=== PATIENT | female | born 1945 | race Native Hawaiian/Other Pacific Islander ===

== ENCOUNTER 2018-08-03 10:07 | Day surgery (SDC) | payer SELFPAY ==
[2018-08-03 10:39] VITALS: BMI 20.9
[2018-08-03 11:06] VITALS: RESP 18
[2018-08-03 12:01] LABS: BASO % 0.6 % (0.0-2.0); EOS # 0.1 K/uL (0.0-0.7); EOS % 2.9 % (0.0-4.0); HEMOGLOBIN 13.3 g/dL (12.0-16.0); LYMPH % 23.6 % (20.0-40.0); MEAN CELL VOLUME 99.3 fl (81.0-99.0); MEAN CORPUSCULAR HEMOGLOBIN 32.7 pg (27.0-31.0); MEAN PLATELET VOLUME 8.1 fl (7.2-11.7); MONO # 0.3 K/uL (0.0-0.8); MONO % 7.6 % (0.0-10.0); NEUT # 2.8 K/uL (1.8-7.0); NEUT % 65.3 % (50.0-75.0); NRBC % 0.2 % (0.0-0.0); RBC 4.06 Mil/uL (3.80-5.20); RED CELL DISTRIBUTION WIDTH 13.4 % (11.5-14.5); WHITE BLOOD COUNT 4.3 K/uL (4.8-10.8)
[2018-08-03] MEDS ORDERED: Lidocaine 1% Inj (20ml) ONE (12:14)
[2018-08-03 12:15] LABS: BLOOD UREA NITROGEN 19 mg/dl (7-17); CALCIUM 8.7 mg/dL (8.4-10.2); GFR NON-AFRICAN AMERICAN > 60
[2018-08-03 12:34] LABS: INR 0.9; PARTIAL THROMBOPLASTIN TIME 25.2 Seconds (25.6-37.1); PROTHROMBIN TIME 10.5 Seconds (9.8-13.1)
--- NOTE | 2018-08-03 12:34 | CP.SDSHP ---
Same Day Surgery H & P - History Proposed Procedure: US guided FNA of right thyroid nodule Pre-Op Diagnosis: right thyroid nodule - Allergies Allergies: Allergies No Known Allergies Allergy (Verified 08/03/18 10:40) - Physical Exam Vital Signs: Vital Signs 08/03/18 08/03/18 11:03 12:04 Temperature 98 F 98.4 F Pulse Rate 87 80 Respiratory 18 18 Rate Blood Pressure 145/91 H 140/79 O2 Sat by Pulse 95 Oximetry Mental Status: Alert & Oriented x3 - Impression Impression: Pt with a complex partially calcified right thyroid nodule. Plan US guided FNA of right thyroid nodule Pt. Evaluated Today:Candidate for Anesthesia & Procedure: No Short Stay Discharge - Short Stay Discharge Admitting Diagnosis/Reason for Visit: CYST RT 1.2 CM
--- NOTE | 2018-08-03 12:36 | PCM.SURG1 ---
Surgeon's Initial Post Op Note - Surgeon's Notes Surgeon: James Varma MD Overseer Kosher Kitchen: NONE Type of Anesthesia: Local Pre-Operative Diagnosis: right thyroid nodule Operative Findings: 1.2 cm calcified right thyroid nodule Post-Operative Diagnosis: Right thyroid nodule Operation Performed: US guided FNA of right thyroid nodule Specimen/Specimens Removed: 25 g FNA x 5 passes Estimated Blood Loss: EBL {In ML}: 1 Blood Products Given: N/A Drains Used: No Drains Post-Op Condition: Good Date of Surgery/Procedure: 08/03/18 Time of Surgery/Procedure: 12:30
[2018-08-03 13:04] VITALS: BP 160/93; PULSE 80; TEMP 98; O2SAT 97
--- NOTE | 2018-08-10 11:48 | US ---
PROCEDURE: Date of Procedure: 08/03/2018 PROCEDURE: 1. Ultrasound guided FNA of right thyroid nodule, CPT 85972 2. Ultrasound guidance for FNA, 39557 Medications: 3cc 1% Lidocaine HISTORY: Enlarged right thyroid nodule. TECHNIQUE: Following informed consent and procedure time-out, a limited ultrasound patient's neck confirmed the presence of a 1.5 cm complex right thyroid nodule which is calcified. After the patient's neck was prepped and draped in the usual sterile fashion, the skin was anesthetized with 1% lidocaine. Ultrasound-guided fine needle aspiration was then performed of the dominant right thyroid nodule. A total of 5 passes were made into the nodule with 25 gauge needle under ultrasound guidance. The FNA specimen was sent for routine pathology and genetics . Post biopsy ultrasound showed no hematoma. IMPRESSION: Ultrasound-guided FNA of the dominant right thyroid nodule.
== END 2018-08-03 14:00 | disposition home or self-care (01) ==
LOC: H.OPSURG 10:07
PROVIDERS: ATTEND Family Medicine
DX: E04.1 Nontoxic single thyroid nodule (principal)